=== PATIENT | female | born 1990 | race Hispanic/Latino ===

== ENCOUNTER 2017-08-28 08:58 | Emergency (ER) | payer OTHER, SELFPAY ==
[2017-08-28 09:36] LABS: Bilirubin Negative (Negative); Blood, Urine Trace (Negative); Glucose, Urine (Dipstick) Negative (Negative); Ketone, Urine Negative (Negative); Nitrite Negative (Negative); Protein, Urine (Dipstick) Negative (Neg-Trace)
[2017-08-28 09:39] LABS: Bacteria/HPF 1+ HPF (None Seen); Hyaline Casts/LPF 0-3 HYALINE CAST LPF (0-3 Hyaline); Squamous Epithelial 0-3 HPF (0-3); WBC/HPF 0-3 HPF (0-3)
[2017-08-28 09:53] LABS: #Eosinphils 0.4 thou/uL (0.0-0.7); #Lymphocytes 2.4 thou/uL (1.20-3.40); #Monocytes 0.2 thou/uL (0.11-0.59); #Neutrophils 2.5 thou/uL (1.40-6.50); %Basophils 0.7 % (0.0-1.0); %Eosinophils 6.7 % (0.0-10.0); %Lymphocytes 43.4 % (21.0-51.0); %Monocytes 4.4 % (0.0-10.0); Hematocrit 37.4 % (36.0-47.0); Mean Platelet Volume 6.5 fL (7.4-10.4); Red Blood Cell (RBC) Count 4.22 mill/uL (4.20-5.40); White Blood Cell (WBC) Count 5.5 thou/uL (4.8-10.8)
[2017-08-28 10:14] LABS: ALT (SGPT) 12 U/L (8-55); AST (SGOT) 15 U/L (5-34); Alkaline Phosphatase 61 U/L (40-150); Anion Gap 11 mmol/L (10-20); BUN (Urea Nitrogen) 7 mg/dL (7.0-18.7); Bilirubin, Total 0.4 mg/dL (0.2-1.2); Calc. Creatinine Clearance 0 mL/min (70-130); Calcium 9.4 mg/dL (7.8-10.44); Carbon Dioxide 28 mmol/L (22-29); Chloride 105 mmol/L (98-107); Estimated GFR-MDRD Greater than 90; Globulin 3.1 g/dL (2.4-3.5); Lipase 25 U/L (8-78); Protein, Total 7.4 g/dL (6.0-8.3)
--- NOTE | 2017-08-28 10:57 | CT ---
CT ABDOMEN AND PELVIS WITH CONTRAST: Multiple axial tomograms were obtained through the abdomen and pelvis with IV enhancement. HISTORY: Right abdominal pain. Nausea. FINDINGS: Lung bases clear. Liver, spleen, pancreas unremarkable. The stomach and duodenum unremarkable. Kid neys unremarkable. Small 1 cm cortical cyst right kidney noted. The small bowel loops appear normal. The appendix is identified and appears unremarkable. There are follicular cysts seen in both ovaries. There is a dominate follicular cyst in the right ov katelyn measuring up to 2.5 cm in the axial plane. This may be septated or complex. A small amount of f ree fluid in the pelvis is seen, particularly in the region of the left adnexa. The uterus appears u nremarkable. The urinary bladder is contracted. No mass or adenopathy. IMPRESSION: 1. No evidence of appendicitis. 2. There are bilateral ovarian follicular cysts seen and a larger follicular cyst on the right ovary measures up to 2.5 cm in the axial plane. This may represent a subtalar complex cyst. No significa nt free fluid. POS: [facility]
--- NOTE | 2017-08-28 12:11 | ULT ---
PELVIC ULTRASOUND: HISTORY: Right-sided abdominal pain and nausea, beginning last night. Last menstrual period was this morning and was normal. COMPARISON: None. TECHNIQUE: Transabdominal and endovaginal imaging of the pelvis is performed. The ovaries are interrogated with ta-scale, color-flow, Doppler imaging, and spectral waveform analysis. FINDINGS: The uterus is identified, without myometrial masses. The uterus measures 4.5 x 3.7 x 7.3 cm. The en dometrium has a normal echotexture with a diameter of 0.9 cm. The left ovary has a normal echotexture. Follicles are noted. The left ovary measures 1.5 x 2.7 x 2 cm. Limited evaluation of the right ovary. Follicles are suggested. The right ovary measures 2.1 x 2.6 cm. No free fluid. OVARIAN DOPPLER: Vascular flow to the left and right artery. IMPRESSION: 1. Unremarkable pelvic ultrasound. 2. Limited evaluation of the right ovary. POS: [facility]
[2017-08-28] MEDS ORDERED: Morphine 4 MG/ML VIAL ONE (12:35)
[2017-08-28] MEDS ORDERED: Ondansetron HCl/PF 4 MG/2 ML Vial ONE (12:36)
[2017-08-28] MEDS ORDERED: ISOVUE-370 76%-LOCM 1 ML ONE (13:09)
== END 2017-08-28 13:11 | disposition home or self-care (01) ==
LOC: ERS 08:58
DX: N83.01 Follicular cyst of right ovary (principal); N83.02 Follicular cyst of left ovary
CPT/HCPCS: 74177; 76856; 80053; 81003; 81015; 81025; 83690; 85025; 87086; 87480; 87491; 87510; 87591; 87660; 94760; 96374; 96375; J2270; J2405

== ENCOUNTER 2017-08-31 17:14 | Emergency (ER) | payer OTHER, SELFPAY ==
[2017-08-31 20:11] LABS: #Eosinphils 0.3 thou/uL (0.0-0.7); #Lymphocytes 2.8 thou/uL (1.20-3.40); #Monocytes 0.2 thou/uL (0.11-0.59); #Neutrophils 3.4 thou/uL (1.40-6.50); %Basophils 0.5 % (0.0-1.0); %Eosinophils 4.1 % (0.0-10.0); %Lymphocytes 40.8 % (21.0-51.0); %Monocytes 3.6 % (0.0-10.0); Hematocrit 36.2 % (36.0-47.0); Mean Platelet Volume 6.5 fL (7.4-10.4); Red Blood Cell (RBC) Count 4.14 mill/uL (4.20-5.40); White Blood Cell (WBC) Count 6.7 thou/uL (4.8-10.8)
[2017-08-31 20:34] LABS: ALT (SGPT) 11 U/L (8-55); AST (SGOT) 17 U/L (5-34); Alkaline Phosphatase 58 U/L (40-150); Anion Gap 10 mmol/L (10-20); BUN (Urea Nitrogen) 11 mg/dL (7.0-18.7); Bilirubin, Total 0.2 mg/dL (0.2-1.2); Calc. Creatinine Clearance 0 mL/min (70-130); Calcium 9.2 mg/dL (7.8-10.44); Carbon Dioxide 25 mmol/L (22-29); Chloride 108 mmol/L (98-107); Estimated GFR-MDRD 78; Protein, Total 7.2 g/dL (6.0-8.3)
[2017-08-31] MEDS ORDERED: Ketorolac Tromethamine 30 MG/ML VIAL ONE (20:48)
[2017-08-31] MEDS ORDERED: diphenhydrAMINE 50 MG/ML VIAL ONE (20:48)
[2017-08-31] MEDS ORDERED: Metoclopramide HCl 10 MG/2 ML VIAL ONE (20:48)
[2017-08-31 20:58] LABS: Bilirubin Negative (Negative); Blood, Urine Negative (Negative); Glucose, Urine (Dipstick) Negative (Negative); Ketone, Urine Negative (Negative); Nitrite Negative (Negative); Protein, Urine (Dipstick) Negative (Neg-Trace); Urobilinogen 0.2 mg/dL (0.2-1.0)
--- NOTE | 2017-08-31 21:49 | ULT ---
ULTRASOUND TRANSVAGINAL DOPPLER DUPLEX: Date: 08/31/17 Time: 9 p.m. HISTORY: 27-year-old female with right sided pelvic pain. TECHNIQUE: Endovaginal transducer used to evaluate the intrapelvic contents using ta scale, color flow and spe ctral analysis. FINDINGS: There is a small amount of free fluid in the cul-de-sac. The uterus is 7.5 x 3.5 x 4.5 cm. Endometrial stripe is 0.8 cm (8 mm). Right ovary: 3 x 2 x 2.5 cm. Left ovary: 2 x 1.5 x 3 cm. Blood flow demonstrated in both ovaries by doppler. 2 x 1.5 x 2 cm right ovarian cyst. IMPRESSION: 2 cm right ovarian cyst. POS: [facility]
== END 2017-08-31 22:00 | disposition home or self-care (01) ==
LOC: ERS 17:14
DX: N83.201 Unspecified ovarian cyst, right side (principal); R51 Headache
CPT/HCPCS: 76856; 80053; 81003; 85025; 96365; 96375; J1200; J1885; J2765

== ENCOUNTER 2017-10-01 14:37 | Emergency (ER) | payer MEDICAID ==
[2017-10-01 17:32] LABS: #Basophils 0.1 thou/uL (0.0-0.2); #Eosinphils 0.5 thou/uL (0.0-0.7); #Lymphocytes 2.8 thou/uL (1.20-3.40); #Monocytes 0.4 thou/uL (0.11-0.59); #Neutrophils 3.5 thou/uL (1.40-6.50); %Basophils 0.9 % (0.0-1.0); %Eosinophils 6.3 % (0.0-10.0); %Monocytes 4.8 % (0.0-10.0); Hemoglobin 11.7 g/dL (12.0-16.0); Mean Corpuscular HGB CONC 33.7 g/dL (32.0-36.0); Mean Corpuscular Hemoglobin 30.1 pg (27.0-31.0); Mean Corpuscular Volume 89.3 fl (81.0-99.0); Mean Platelet Volume 6.4 fL (7.4-10.4); Platelet Count 257 thou/uL (130-400); RBC Distribution Width 12.5 % (11.5-14.5); Red Blood Cell (RBC) Count 3.88 mill/uL (4.20-5.40); White Blood Cell (WBC) Count 7.2 thou/uL (4.8-10.8)
[2017-10-01 17:56] LABS: ALT (SGPT) 12 U/L (8-55); AST (SGOT) 17 U/L (5-34); Albumin 4.2 g/dL (3.5-5.0); Alkaline Phosphatase 49 U/L (40-150); Anion Gap 11 mmol/L (10-20); BUN (Urea Nitrogen) 8 mg/dL (7.0-18.7); Bilirubin, Total 0.3 mg/dL (0.2-1.2); Calc. Creatinine Clearance 0 mL/min (70-130); Calcium 9.3 mg/dL (7.8-10.44); Carbon Dioxide 25 mmol/L (22-29); Chloride 105 mmol/L (98-107); Estimated GFR-MDRD Greater than 90; Globulin 2.7 g/dL (2.4-3.5); Glucose 109 mg/dL (70-105); Potassium 3.5 mmol/L (3.5-5.1); Protein, Total 6.9 g/dL (6.0-8.3); Sodium 137 mmol/L (136-145)
[2017-10-01] MEDS ORDERED: Ketorolac Tromethamine 30 MG/ML VIAL ONE (18:03)
[2017-10-01] MEDS ORDERED: Metoclopramide HCl 10 MG/2 ML VIAL ONE (18:03)
[2017-10-01] MEDS ORDERED: diphenhydrAMINE 50 MG/ML VIAL ONE (18:03)
== END 2017-10-01 19:02 | disposition home or self-care (01) ==
LOC: ERS 14:37
DX: R51 Headache (principal)
CPT/HCPCS: 36415; 80053; 85025; 96365; 96375; J1200; J1885; J2765

== ENCOUNTER 2017-10-03 15:30 | Outpatient (CLI) | payer MEDICAID ==
--- NOTE | 2017-10-03 16:48 | ULT ---
PELVIC SONOGRAM TRANSABDOMINAL AND TRANSVAGINAL IMAGING WITH DUPLEX EVALUATION 10/03/17 HISTORY: Pelvic pain. FINDINGS: The urinary bladder is decompressed. The uterus has a heterogeneous echotexture and is 8.2 cm in cb th. Endometrium is 0.9 cm. Physiologic amount of free fluid is present within the cul-de-sac. The rig ht ovary is 3.6 cm in length and the left 2.1 cm. Each contains follicles and demonstrates good color and spectral doppler flow. IMPRESSION: Normal pelvic sonogram. POS: [facility]
== END 2017-10-03 15:31 | disposition home or self-care (01) ==
LOC: ULT 15:30 → EDSTATUS 16:00
PROVIDERS: ATTEND Nurse Practitioner Women's Health
DX: N83.202 Unspecified ovarian cyst, left side (principal)
CPT/HCPCS: 76856

== ENCOUNTER 2017-10-22 17:47 | Emergency (ER) | payer MEDICAID, SELFPAY ==
[~2017-10-22 17:47] MED LIST: ISOVUE-370 76%-LOCM 1 ML ONE; Iopamidol 370 76% 50 ML VIAL FS ONE
[2017-10-22 18:14] LABS: Bilirubin Negative (Negative); Blood, Urine Negative (Negative); Clarity TURBID (Clear); Glucose, Urine (Dipstick) Negative (Negative); Leukocyte Trace (Negative); Nitrite Negative (Negative); Protein, Urine (Dipstick) Negative (Neg-Trace); Specific Gravity, Urine 1.022 (1.002-1.036); Urobilinogen 0.2 mg/dL (0.2-1.0); pH, Urine 7.5 (5.0-9.0)
[2017-10-22 18:14] LABS: #Basophils 0.1 thou/uL (0.0-0.2); #Eosinphils 0.5 thou/uL (0.0-0.7); #Lymphocytes 3.3 thou/uL (1.20-3.40); #Monocytes 0.3 thou/uL (0.11-0.59); #Neutrophils 4.5 thou/uL (1.40-6.50); %Eosinophils 5.7 % (0.0-10.0); %Monocytes 3.2 % (0.0-10.0); %Neutrophils 52.1 % (42.0-75.0); Hemoglobin 12.3 g/dL (12.0-16.0); Mean Corpuscular HGB CONC 33.9 g/dL (32.0-36.0); Mean Corpuscular Volume 88.4 fl (81.0-99.0); Mean Platelet Volume 6.2 fL (7.4-10.4); Platelet Count 400 thou/uL (130-400); RBC Distribution Width 12.1 % (11.5-14.5); Red Blood Cell (RBC) Count 4.09 mill/uL (4.20-5.40); White Blood Cell (WBC) Count 8.7 thou/uL (4.8-10.8)
[2017-10-22 18:16] LABS: Bacteria/HPF Rare-Few HPF (None Seen); Hyaline Casts/LPF 0-3 HYALINE CAST LPF (0-3 Hyaline); Squamous Epithelial 0-3 HPF (0-3); WBC/HPF 0-3 HPF (0-3)
[2017-10-22 18:16] LABS: Pregnancy Test - Urine (BHCG) Negative (Negative); Pregu Control Background? CLEAR/WHITE (CLR/WHITE); Pregu Control Bar Appear? YES (CONTROL BAR); Specific Gravity 1.022 (1.002-1.036)
[2017-10-22 18:20] LABS: RBC/HPF None Seen HPF (0-3)
[2017-10-22 18:38] LABS: ALT (SGPT) 13 U/L (8-55); AST (SGOT) 21 U/L (5-34); Albumin 4.2 g/dL (3.5-5.0); Alkaline Phosphatase 63 U/L (40-150); Anion Gap 10 mmol/L (10-20); BUN (Urea Nitrogen) 12 mg/dL (7.0-18.7); Bilirubin, Total 0.2 mg/dL (0.2-1.2); Calc. Creatinine Clearance 0 mL/min (70-130); Calcium 9.2 mg/dL (7.8-10.44); Carbon Dioxide 25 mmol/L (22-29); Chloride 107 mmol/L (98-107); Estimated GFR-MDRD 89; Globulin 3.2 g/dL (2.4-3.5); Glucose 107 mg/dL (70-105); Lipase 48 U/L (8-78); Potassium 3.5 mmol/L (3.5-5.1); Protein, Total 7.4 g/dL (6.0-8.3); Sodium 138 mmol/L (136-145)
[2017-10-22] MEDS ORDERED: Ketorolac Tromethamine 30 MG/ML VIAL ONE (20:26)
[2017-10-22] MEDS ORDERED: Ondansetron HCl/PF 4 MG/2 ML Vial ONE ×2 (20:26→22:05)
[2017-10-22] MEDS ORDERED: Ondansetron ODT 4 MG TAB ONE (22:05)
--- NOTE | 2017-10-22 22:31 | CT ---
CT ABDOMEN AND PELVIS WITH CONTRAST: Technique: Multiple axial tomograms were obtained through the abdomen and pelvis with IV contrast. Or al contrast was given. History: Right upper quadrant pain x four days. Comparison: 08-28-17 FINDINGS: Lung bases are clear. Liver, spleen, and pancreas unremarkable. Adrenal glands and kidneys unremarkable. No hydronephrosis. There is a small right renal cyst which is stable from prior exam. Small bowel loops unremarkable. There is stool throughout the colon. The appendix is opacified and is normal caliber with no evidence of appendicitis. The left colon is decompressed and not well evaluated. Images through the pelvis show unremarkable appearing uterus and adnexa. IMPRESSION: No evidence of acute process. Specifically, no evidence of appendicitis. POS: [facility]
== END 2017-10-22 23:04 | disposition home or self-care (01) ==
LOC: ERS 17:47
DX: R10.31 Right lower quadrant pain (principal)
CPT/HCPCS: 36415; 74177; 80053; 81003; 81015; 81025; 83690; 85025; 87086; 96374; 96375; 96376; J1885; J2405; Q0162

== ENCOUNTER 2018-01-18 15:43 | Emergency (ER) | payer MEDICAID ==
[2018-01-18 16:06] LABS: #Basophils 0.1 thou/uL (0.0-0.2); #Eosinphils 0.6 thou/uL (0.0-0.7); #Lymphocytes 2.6 thou/uL (1.20-3.40); #Monocytes 0.2 thou/uL (0.11-0.59); %Basophils 0.9 % (0.0-1.0); %Eosinophils 9.5 % (0.0-10.0); %Lymphocytes 39.7 % (21.0-51.0); %Monocytes 3.2 % (0.0-10.0); %Neutrophils 46.7 % (42.0-75.0); Hemoglobin 13.8 g/dL (12.0-16.0); Mean Corpuscular HGB CONC 33.6 g/dL (32.0-36.0); Mean Corpuscular Volume 89.3 fl (81.0-99.0); Mean Platelet Volume 6.1 fL (7.4-10.4); Platelet Count 356 thou/uL (130-400); RBC Distribution Width 12.7 % (11.5-14.5); Red Blood Cell (RBC) Count 4.61 mill/uL (4.20-5.40); White Blood Cell (WBC) Count 6.5 thou/uL (4.8-10.8)
[2018-01-18 16:27] LABS: ALT (SGPT) 13 U/L (8-55); AST (SGOT) 19 U/L (5-34); Albumin 4.7 g/dL (3.5-5.0); Alkaline Phosphatase 65 U/L (40-150); Anion Gap 12 mmol/L (10-20); BUN (Urea Nitrogen) 10 mg/dL (7.0-18.7); Bilirubin, Total 0.2 mg/dL (0.2-1.2); Calc. Creatinine Clearance 0 mL/min (70-130); Calcium 9.4 mg/dL (7.8-10.44); Carbon Dioxide 22 mmol/L (22-29); Chloride 107 mmol/L (98-107); Estimated GFR-MDRD Greater than 90; Globulin 3.1 g/dL (2.4-3.5); Glucose 96 mg/dL (70-105); Potassium 4.2 mmol/L (3.5-5.1); Protein, Total 7.8 g/dL (6.0-8.3); Sodium 137 mmol/L (136-145)
[2018-01-18] MEDS ORDERED: Ketorolac Tromethamine 30 MG/ML VIAL ONE (17:19)
--- NOTE | 2018-01-18 17:47 | ULT ---
PELVIC ULTRASOUND INCLUDING TRANSABDOMINAL AND TRANSVAGINAL AND VASCULAR DUPLEX WITH COLOR AND SPECTR AL DOPPLER IMAGIN01/18/18 HISTORY: 27-year-old female with right sided pelvic pain. COMPARISON: 10/03/17 FINDINGS: The uterus appears normal measuring 6.8 x 3.3 x 5.0 cm with an endometrium measuring 0.3 cm in thickn ess. The right ovary measures 1.6 x 2.1 x 2.4 cm. The left ovary measures 1.7 x 2.0 x 2.8 cm. There i s a very small 02 x 0.7 cm diameter cystic focus in the left side of the fundus of the uterus which i s not in the endometrial cavity. I am not certain as to the etiology of this but I do not feel that i t is clinically significant. I feel that it probably was present on the prior study but just not as w ell seen because of the less quality of that study. IMPRESSION: Unremarkable pelvic ultrasound. 0.2 x 0.7 cm diameter cystic focus in the left uterine fundal region. Etiology of this is uncertain but I feel that this is not related to any acute process and probably was present on the prior 10/03/17 study and stable POS: [facility]
[2018-01-18 17:56] LABS: Bilirubin Negative (Negative); Blood, Urine Negative (Negative); Clarity CLOUDY (Clear); Glucose, Urine (Dipstick) Negative (Negative); Leukocyte Negative (Negative); Nitrite Negative (Negative); Protein, Urine (Dipstick) Negative (Neg-Trace); Urobilinogen 0.2 mg/dL (0.2-1.0)
[2018-01-18 17:57] LABS: Pregnancy Test - Urine (BHCG) Negative (Negative); Pregu Control Background? CLEAR/WHITE (CLR/WHITE); Pregu Control Bar Appear? YES (CONTROL BAR)
[2018-01-18] MEDS ORDERED: Iopamidol 370 76% 50 ML VIAL FS ONE (20:22)
[2018-01-18] MEDS ORDERED: ISOVUE-370 76%-LOCM 1 ML ONE (20:22)
--- NOTE | 2018-01-18 20:56 | CT ---
CT ABDOMEN AND PELVIS WITH IV CONTRAST 01/18/18 Multiple axial tomograms obtained through the abdomen and pelvis with IV enhancement. Oral contrast w as also administered. INDICATIONS: Right lower quadrant abdominal pain. Comparison made to prior CT abdomen and pelvis dated 10/22/17. The lung bases are clear. The liver, spleen and pancreas unremarkable. Adrenal glands and kidneys unremarkable. Small cyst in t he mid right kidney is stable. No hydronephrosis. The urinary bladder is mildly distended. Small bowel loops appear normal. The appendix opacifies and appears normal. the uterus and adnexa jillian ear unremarkable. No free fluid seen. IMPRESSION: No acute abnormality identified. POS: [facility]
== END 2018-01-18 20:45 | disposition home or self-care (01) ==
LOC: ERS 15:43
DX: R10.31 Right lower quadrant pain (principal)
CPT/HCPCS: 36415; 74177; 76856; 80053; 81003; 81025; 85025; 96372; J1885

== ENCOUNTER 2018-06-02 20:37 | Emergency (ER) | payer MEDICAID, SELFPAY ==
[2018-06-02] MEDS ORDERED: hydrOXYzine 25 MG TAB PO SCH (21:15)
--- NOTE | 2018-06-02 21:32 | RAD ---
CHEST TWO VIEWS: HISTORY: Shortness of breath. COMPARISON: None. FINDINGS: The lungs are clear. No pneumothorax or effusion. The cardiac silhouette and mediastinal contour ar e within normal limits. IMPRESSION: No acute intrathoracic abnormality. POS: [facility]
[2018-06-02] MEDS ORDERED: hydrOXYzine 25 MG TAB ONE (21:38)
== END 2018-06-02 22:48 | disposition home or self-care (01) ==
LOC: ERS 20:37
DX: R09.89 Other specified symptoms and signs involving the circulatory and respiratory systems (principal)
CPT/HCPCS: 71046; 87081; 87430

== ENCOUNTER 2018-08-05 18:16 | Observation (INO) | payer SELFPAY ==
[2018-08-05 18:54] LABS: #Basophils 0.1 thou/uL (0.0-0.2); #Eosinphils 0.4 thou/uL (0.0-0.7); #Lymphocytes 2.9 thou/uL (1.20-3.40); #Monocytes 0.3 thou/uL (0.11-0.59); #Neutrophils 2.4 thou/uL (1.40-6.50); %Eosinophils 6.2 % (0.0-10.0); %Lymphocytes 47.5 % (21.0-51.0); %Monocytes 5.5 % (0.0-10.0); %Neutrophils 39.9 % (42.0-75.0); Hemoglobin 12.6 g/dL (12.0-16.0); Mean Corpuscular HGB CONC 33.3 g/dL (32.0-36.0); Mean Corpuscular Hemoglobin 28.9 pg (27.0-31.0); Mean Corpuscular Volume 86.7 fL (78.0-98.0); Mean Platelet Volume 6.5 fL (7.4-10.4); Platelet Count 331 thou/uL (130-400); RBC Distribution Width 12.6 % (11.5-14.5); Red Blood Cell (RBC) Count 4.38 mill/uL (4.20-5.40); White Blood Cell (WBC) Count 6.1 thou/uL (4.8-10.8)
[2018-08-05] MEDS ORDERED: Morphine 2 MG/ML SYRINGE ONE (19:05)
[2018-08-05] MEDS ORDERED: Ondansetron PF 4 MG/2 ML Vial ONE (19:05)
[2018-08-05 19:13] LABS: BHCG - Serum Negative (NEGATIVE); Pregs Control Background? CLEAR/WHITE (CLR/WHITE); Pregs Control Bar Appear? YES (CONTROL BAR)
[2018-08-05 19:21] LABS: ALT (SGPT) 15 U/L (8-55); AST (SGOT) 17 U/L (5-34); Albumin 4.3 g/dL (3.5-5.0); Alkaline Phosphatase 65 U/L (40-150); Anion Gap 11 mmol/L (10-20); BUN (Urea Nitrogen) 8 mg/dL (7.0-18.7); Bilirubin, Total 0.3 mg/dL (0.2-1.2); Calc. Creatinine Clearance 0 mL/min (70-130); Calcium 9.3 mg/dL (7.8-10.44); Carbon Dioxide 24 mmol/L (22-29); Chloride 106 mmol/L (98-107); Estimated GFR-MDRD 90; Glucose 102 mg/dL (70-105); Lipase 35 U/L (8-78); Potassium 3.5 mmol/L (3.5-5.1); Protein, Total 7.3 g/dL (6.0-8.3); Sodium 137 mmol/L (136-145)
[2018-08-05] MEDS ORDERED: Ondansetron ODT 4 MG TAB PO PRN (21:11)
[2018-08-05] MEDS ORDERED: Ondansetron PF 4 MG/2 ML Vial IVP PRN (21:11)
[2018-08-05] MEDS ORDERED: Ketorolac Tromethamine 30 MG/ML VIAL IVP PRN (21:13)
[2018-08-05] MEDS ORDERED: Acetaminophen 1,000 MG in Premix Bag 1 BAG IVPB PRN (21:13)
[2018-08-05] MEDS ORDERED: Levofloxacin 500 mg/D5W 100 ml Premix Bag ONE (21:24)
[2018-08-05] MEDS ORDERED: Scopolamine 1.5 mg/72 hour Patch TD SCH (22:00)
--- NOTE | 2018-08-05 22:31 | ULT ---
GALLBLADDER ULTRASOUND: History: Right upper quadrant pain. FINDINGS: Images of the gallbladder show shadowing gallstones in the neck of the gallbladder. The gallbladder w all is thickened and edematous. Pericholecystic edema. Common duct is normal caliber at 4-5 mm. Techn ologist describes a positive Vásquez sign. Liver unremarkable. Pancreas obscured. Right kidney unremarkable. Tiny cortical cysts measuring appro ximately 0.7 cm noted in the mid right kidney. There is a tiny adjacent echogenic focus which could r epresent calculus, however, no posterior shadowing is identified. IMPRESSION: 1. The gallbladder is abnormal with gallstones in the neck of the gallbladder with thickened gallblad hilario wall with pericholecystic edema, positive Vásquez's sign suggesting cholecystitis. 2. Tiny right renal cysts as described. POS: [facility]
[2018-08-05 22:36] VITALS: BMI 22.9
--- NOTE | 2018-08-05 23:11 | HP ---
HISTORY OF PRESENT ILLNESS: Malinda Bello is a 28-year-old female, mother of 4 C-sections pr ior to ligation and has had epigastric pain, right upper quadrant pain, and back radiation. She pres ents to the emergency room, evaluated. Ultrasound revealed gallstones with bile duct of 3.2 mm. Yamilet er function tests are normal. ALLERGIES: None. TOBACCO: None. ALCOHOL: Rarely. MEDICATIONS: None. PAST SURGICAL HISTORY/PAST MEDICAL HISTORY: Noncontributory except for C-sections and tubal ligation . REVIEW OF SYSTEMS: Ten point noncontributory. PHYSICAL EXAMINATION: VITAL SIGNS: Blood pressure 120/74, respiration rate 16, heart rate 74. HEENT: Unremarkable. Sclerae nonicteric. SKIN: Nonjaundiced. LUNGS: Clear to auscultation. CARDIAC: Regular rate and rhythm without murmur or gallop. ABDOMEN: Soft and tenderness in right quadrant with guarding. EXTREMITIES: Unremarkable. ASSESSMENT AND PLAN: Cholecystitis and cholelithiasis. I have recommended laparoscopic video cholec ystectomy. Risk of infection, bleeding and visceral biliary injury explained. She consents.
[2018-08-06] MEDS: Sodium Chloride 0.9% 1,000 ML IV SCH ×2 (00:06→07:38)
[2018-08-06] MEDS ORDERED: Morphine 4 MG/ML VIAL IV PRN (02:07)
[2018-08-06] MEDS ORDERED: Morphine 2 MG/ML SYRINGE SLOW IVP PRN (02:40)
[2018-08-06] MEDS ORDERED: Fentanyl 100 MCG/2 ML VIAL ONE ×3 (07:15→09:44)
[2018-08-06] MEDS ORDERED: Famotidine/PF 20 mg/2ml Vial ONE (07:18)
[2018-08-06] MEDS ORDERED: Ketorolac Tromethamine 30 MG/ML VIAL ONE (07:32)
[2018-08-06] MEDS ORDERED: Bupivacaine HCl 0.5%/Epinephrine 1:200,000/PF 30 ml Vial ONE (08:55)
[2018-08-06] MEDS ORDERED: Meperidine HCl/PF 25 MG/ML VIAL SLOW IVP PRN (08:59)
[2018-08-06] MEDS ORDERED: Promethazine HCl 25 MG/ML VIAL IM PRN (08:59)
[2018-08-06] MEDS ORDERED: Promethazine HCl 25 MG/ML VIAL SLOW IVP PRN (08:59)
[2018-08-06] MEDS ORDERED: Ondansetron HCl/PF 4 MG/2 ML Vial IVP PRN (08:59)
[2018-08-06] MEDS ORDERED: traMADol HCl 50 MG TAB PO PRN ×2 (09:24)
[2018-08-06] MEDS ORDERED: Acetaminophen 500 MG TAB PO PRN (09:24)
[2018-08-06] MEDS ORDERED: Ibuprofen 600 MG TAB PO PRN (09:24)
--- NOTE | 2018-08-06 10:22 | OP ---
DATE OF OPERATION: 08/06/2018 PREOPERATIVE DIAGNOSES: Acute on chronic cholecystitis, cholelithiasis, gallstone obstructing the ga llbladder outlet. SURGEON: Gene Rhodes M.D. ELECTROLOGIST: Kevin Koroma MS-4. PROCEDURE PERFORMED: Laparoscopic video cholecystectomy. ANESTHESIA: A 0.5% Marcaine with epinephrine 30 mL, general anesthesia. DESCRIPTION OF PROCEDURE: The patient was taken to the operating room where under general anesthesia , abdomen was prepared with ChloraPrep, draped in routine fashion. Local anesthetic was infiltrated into the skin and subcutaneous tissue about each port site. Infraumbilical incision was made. Pneum operitoneum to 15 mmHg obtained with the Veress needle, replacing it with a 5 port and video laparosc ope inserted. Right subxiphoid incision was made and a 11 port placed. Right subcostal incision was made in midclavicular anterior axillary lines and 5 ports placed. Fundus of the gallbladder grasped at cephalad. Gallbladder acutely inflamed, distended with a stone obstructing the gallbladder outle t. Cystic artery and duct dissected free. Critical view obtained. Cystic artery and duct doubly cl ipped proximally, divided, and gallbladder dissected free from the liver bed obtaining good hemostasi s prior to division of final peritoneal attachments. Gallbladder and stones removed and submitted to Pathology. Good hemostasis ensured with cautery. Irrigant and pneumoperitoneum evacuated. All ins truments removed and all skin incisions approximated with interrupted subdermal 4-0 Monocryl and Derm aGlue applied.
[2018-08-06 10:40] VITALS: BP 103/63; TEMP 98
[2018-08-06] MEDS ORDERED: Dexamethasone 20 MG/5 ML VIAL ONE (14:23)
[2018-08-06] MEDS ORDERED: Succinylcholine Chloride 20 MG/ML 10 ml SYRINGE FS ONE (14:23)
[2018-08-06] MEDS ORDERED: PROPOFOL 200 MG/20 ML VIAL ONE (14:23)
[2018-08-06] MEDS ORDERED: Ondansetron PF 4 MG/2 ML Vial ONE (14:23)
[2018-08-06] MEDS ORDERED: Lidocaine 1% PF 5 ML VIAL ONE (14:23)
[2018-08-06] MEDS ORDERED: Glycopyrrolate 0.2 MG/ML 5 ML SYRINGE ONE (14:23)
--- NOTE | 2018-08-06 17:05 | DIS ---
DATE OF ADMISSION: 08/05/2018 DATE OF DISCHARGE: 08/06/2018 DISCHARGE DIAGNOSES: Acute cholecystitis, cholelithiasis, cystic duct obstruction with large stone. PROCEDURES: Laparoscopic video cholecystectomy. CT scan and ultrasound in the ER prior to admission . HISTORY: A 28-year-old 4, para 4 with history of tubal ligation, presents with biliary sympt oms. Normal liver function test. CT scan and ultrasound revealing gallstones, normal bile duct christina edna. Underwent laparoscopic video cholecystectomy after hydrating. Given antibiotics overnight. Hafsa lakhani was discharged home same day. To see me in the office in 1-2 weeks and home with Ultram p.r.n. manpreet n refractory to Tylenol and Motrin [id number]. Diet and activity as tolerated. No lifting res trictions.
[2018-08-06] MEDS ORDERED: Enoxaparin Sodium 40 MG/0.4 ML SYRINGE SC SCH (21:00)
== END 2018-08-06 17:10 | disposition home or self-care (01) ==
LOC: ERS 18:16 → SURG A 22:13
PROVIDERS: ADMIT Specialist; ATTEND Specialist
PROC: 0FT44ZZ Resection of Gallbladder, Percutaneous Endoscopic Approach (ICD-10-PCS; principal; 2018-08-06)
DX: K80.12 Calculus of gallbladder with acute and chronic cholecystitis without obstruction (principal)
CPT/HCPCS: 76705; 80053; 82274; 83690; 84703; 85025; 88304; 96361; 96365; 96375; G0378; J0131; J0670; J1100; J1885; J1956; J2001; J2270; J2405; J2704; J3010; S0028

== ENCOUNTER 2018-08-10 17:09 | Emergency (ER) | payer SELFPAY ==
[2018-08-10 17:37] LABS: #Eosinphils 0.4 thou/uL (0.0-0.7); #Monocytes 0.3 thou/uL (0.11-0.59); #Neutrophils 2.6 thou/uL (1.40-6.50); %Basophils 0.9 % (0.0-1.0); %Eosinophils 7.2 % (0.0-10.0); %Lymphocytes 37.4 % (21.0-51.0); %Monocytes 5.1 % (0.0-10.0); %Neutrophils 49.4 % (42.0-75.0); Hemoglobin 12.6 g/dL (12.0-16.0); Mean Corpuscular HGB CONC 33.5 g/dL (32.0-36.0); Mean Corpuscular Hemoglobin 29.4 pg (27.0-31.0); Mean Corpuscular Volume 87.6 fL (78.0-98.0); Mean Platelet Volume 6.3 fL (7.4-10.4); Platelet Count 363 thou/uL (130-400); RBC Distribution Width 12.5 % (11.5-14.5); White Blood Cell (WBC) Count 5.3 thou/uL (4.8-10.8)
[2018-08-10 17:42] LABS: Bilirubin Negative (Negative); Blood, Urine Moderate (Negative); Clarity TURBID (Clear); Glucose, Urine (Dipstick) Negative (Negative); Leukocyte Small (Negative); Nitrite Negative (Negative); Protein, Urine (Dipstick) Negative (Neg-Trace); Specific Gravity, Urine 1.017 (1.002-1.036)
[2018-08-10 17:44] LABS: Bacteria/HPF None Seen HPF (None Seen); Hyaline Casts/LPF 0-3 HYALINE CAST LPF (0-3 Hyaline); Squamous Epithelial 0-3 HPF (0-3); WBC/HPF 0-3 HPF (0-3); Yeast-AUWi Flag 16.2 (0-25.0)
[2018-08-10 17:45] LABS: Pregnancy Test - Urine (BHCG) Negative (Negative); Pregu Control Background? CLEAR/WHITE (CLR/WHITE); Pregu Control Bar Appear? YES (CONTROL BAR); Specific Gravity 1.017 (1.002-1.036)
[2018-08-10 17:58] LABS: ALT (SGPT) 119 U/L (8-55); AST (SGOT) 43 U/L (5-34); Albumin 4.2 g/dL (3.5-5.0); Alkaline Phosphatase 80 U/L (40-150); Anion Gap 13 mmol/L (10-20); BUN (Urea Nitrogen) 10 mg/dL (7.0-18.7); Bilirubin, Total 0.3 mg/dL (0.2-1.2); Calc. Creatinine Clearance 0 mL/min (70-130); Calcium 9.2 mg/dL (7.8-10.44); Carbon Dioxide 26 mmol/L (22-29); Chloride 104 mmol/L (98-107); Estimated GFR-MDRD Greater than 90; Globulin 2.9 g/dL (2.4-3.5); Glucose 115 mg/dL (70-105); Lipase 37 U/L (8-78); Potassium 3.7 mmol/L (3.5-5.1); Protein, Total 7.1 g/dL (6.0-8.3); Sodium 139 mmol/L (136-145)
== END 2018-08-10 18:43 | disposition home or self-care (01) ==
LOC: ERS 17:09
DX: N30.80 Other cystitis without hematuria (principal)
CPT/HCPCS: 36415; 80053; 81003; 81015; 81025; 83690; 85025; 87086; 99284

== ENCOUNTER 2018-11-01 18:00 | Emergency (ER) | payer SELFPAY | END 2018-11-01 19:09 | disposition home or self-care (01) | LOC: ERS 18:00 | DX: R52 Pain, unspecified (principal) | CPT/HCPCS: 87804; 99281 ==

== ENCOUNTER 2018-11-04 18:58 | Emergency (ER) | payer SELFPAY ==
--- NOTE | 2018-11-04 20:30 | RAD ---
CHEST TWO VIEWS: INDICATIONS: History of fever with never flu evaluation. COMPARISON: 06/02/2018 FINDINGS: The lungs are clear. The cardiomediastinal silhouette is within normal limits. No acute osseous abn ormality is evident. There are surgical clips within the right upper extremity, likely related to an interval cholecystectomy. IMPRESSION: 1. No acute cardiopulmonary abnormality. 2. Interval cholecystectomy. POS: [facility]
[2018-11-04] MEDS ORDERED: Ondansetron ODT 4 MG TAB ONE (20:53)
[2018-11-04] MEDS ORDERED: Acetaminophen 325 MG TAB ONE (21:46)
[2018-11-04] MEDS ORDERED: Ibuprofen 200 MG TAB ONE (21:46)
== END 2018-11-04 21:52 | disposition home or self-care (01) ==
LOC: ERS 18:58
DX: R50.9 Fever, unspecified (principal)
CPT/HCPCS: 71046; 87081; 87430; 87804; Q0162

== ENCOUNTER 2019-01-08 09:46 | Emergency (ER) | payer MEDICAID, SELFPAY ==
--- NOTE | 2019-01-08 10:20 | RAD ---
Right foot 3 views INDICATION: Right foot pain COMPARISON: None FINDINGS: No acute fracture or subluxation is evident. The Lisfranc alignment appears within normal l imits. Soft tissues are normal appearing. IMPRESSION: No acute osseous abnormality.
== END 2019-01-08 10:43 | disposition home or self-care (01) ==
LOC: ERS 09:46
DX: S93.401A Sprain of unspecified ligament of right ankle, initial encounter (principal); S93.601A Unspecified sprain of right foot, initial encounter; W18.30XA Fall on same level, unspecified, initial encounter

== ENCOUNTER 2019-03-10 22:17 | Emergency (ER) | payer SELFPAY ==
[~2019-03-10 22:17] MED LIST changes: -Iopamidol 370 76% 50 ML VIAL FS ONE
[2019-03-10] MEDS ORDERED: Ondansetron PF 4 MG/2 ML Vial ONE (22:34)
[2019-03-10] MEDS ORDERED: Pantoprazole 40 MG VIAL ONE (22:34)
[2019-03-10] MEDS ORDERED: Morphine 4 MG/ML VIAL ONE (22:34)
[2019-03-10 22:49] LABS: #Basophils 0.1 thou/uL (0.0-0.2); #Eosinphils 0.8 thou/uL (0.0-0.7); #Lymphocytes 2.7 thou/uL (1.20-3.40); #Monocytes 0.4 thou/uL (0.11-0.59); #Neutrophils 8.2 thou/uL (1.40-6.50); %Basophils 0.4 % (0.0-1.0); %Eosinophils 6.4 % (0.0-10.0); %Lymphocytes 22.2 % (21.0-51.0); %Monocytes 3.6 % (0.0-10.0); %Neutrophils 67.3 % (42.0-75.0); Hemoglobin 13.5 g/dL (12.0-16.0); Mean Corpuscular HGB CONC 34.2 g/dL (32.0-36.0); Mean Corpuscular Hemoglobin 29.6 pg (27.0-31.0); Mean Corpuscular Volume 86.6 fL (78.0-98.0); Mean Platelet Volume 6.6 fL (7.4-10.4); Platelet Count 325 thou/uL (130-400); RBC Distribution Width 13.1 % (11.5-14.5); Red Blood Cell (RBC) Count 4.56 mill/uL (4.20-5.40); White Blood Cell (WBC) Count 12.1 thou/uL (4.8-10.8)
[2019-03-10 23:11] LABS: ALT (SGPT) 12 U/L (8-55); AST (SGOT) 15 U/L (5-34); Albumin 4.3 g/dL (3.5-5.0); Alkaline Phosphatase 80 U/L (40-150); Anion Gap 14 mmol/L (10-20); BUN (Urea Nitrogen) 12 mg/dL (7.0-18.7); Bilirubin, Total 0.4 mg/dL (0.2-1.2); Calc. Creatinine Clearance 0 mL/min (70-130); Calcium 9.2 mg/dL (7.8-10.44); Carbon Dioxide 19 mmol/L (22-29); Chloride 107 mmol/L (98-107); Estimated GFR-MDRD Greater than 90; Globulin 2.9 g/dL (2.4-3.5); Glucose 112 mg/dL (70-105); Lipase 35 U/L (8-78); Potassium 3.6 mmol/L (3.5-5.1); Protein, Total 7.2 g/dL (6.0-8.3); Sodium 136 mmol/L (136-145)
[2019-03-10 23:15] LABS: BHCG - Serum Negative (NEGATIVE); Pregs Control Bar Appear? YES (CONTROL BAR)
[2019-03-10 23:16] LABS: Pregs Control Background? CLEAR/WHITE (CLR/WHITE)
[2019-03-10 23:16] LABS: Bilirubin Negative (Negative); Blood, Urine Small (Negative); Clarity CLOUDY (Clear); Glucose, Urine (Dipstick) Negative (Negative); Leukocyte Small (Negative); Nitrite Negative (Negative); Protein, Urine (Dipstick) Negative (Neg-Trace); Specific Gravity, Urine 1.028 (1.002-1.036)
[2019-03-10 23:19] LABS: Bacteria/HPF 1+ HPF (None Seen); Hyaline Casts/LPF 0-3 HYALINE CAST LPF (0-3 Hyaline); Pathc Cast-AUWi Flag 0.13 (0-2.49); RBC/HPF 21-50 HPF (0-3)
--- NOTE | 2019-03-10 23:57 | CT ---
CT abdomen and pelvis with IV contrast HISTORY: Right lower quadrant pain. COMPARISON: 01/18/2018. FINDINGS: The lung bases are clear. Small cyst of the right kidney is stable. The liver, spleen, left kidney, adrenal glands, and pancreas have a normal CT appearance. Gallbladder is surgically absent. Appendix not inflamed. Urinary bladder is unremarkable. IMPRESSION: No significant abnormalities are demonstrated.
[2019-03-11] MEDS ORDERED: Mag-Al 1200 mg/1200 mg/30 ML UDCUP ONE (00:34)
[2019-03-11] MEDS ORDERED: Lidocaine Viscous Sol 2% 15 ml UD Cup ONE (00:34)
== END 2019-03-11 00:57 | disposition home or self-care (01) ==
LOC: ERS 22:17
DX: R10.13 Epigastric pain (principal); R10.31 Right lower quadrant pain
CPT/HCPCS: 36415; 74177; 80053; 81003; 81015; 83605; 83690; 84703; 85025; 96361; 96372; 96374; 96375; C9113; J0500; J2270; J2405; Q9966

== ENCOUNTER 2019-05-18 08:55 | Emergency (ER) | payer SELFPAY ==
[2019-05-18 09:52] LABS: Bacteria/HPF 1+ HPF (None Seen); Bilirubin Negative (Negative); Blood, Urine 3+ (Negative); Clarity Turbid (Clear); Glucose, Urine (Dipstick) Normal (Negative); Leukocyte 500 Leu/uL (Negative); Mucous/LPF Rare LPF (<2+); Nitrite Negative (Negative); Protein, Urine (Dipstick) 10 mg/dL (Neg-Trace); Urobilinogen Normal mg/dL (Less than 2)
[2019-05-18 09:53] LABS: Pregnancy Test - Urine (BHCG) Negative (Negative); Pregu Control Background? CLEAR/WHITE (CLR/WHITE); Pregu Control Bar Appear? YES (CONTROL BAR); Specific Gravity 1.024 (1.002-1.036)
[2019-05-18 10:06] LABS: #Eosinphils 0.4 thou/uL (0.0-0.7); #Lymphocytes 1.7 thou/uL (1.20-3.40); #Monocytes 0.2 thou/uL (0.11-0.59); #Neutrophils 2.5 thou/uL (1.40-6.50); %Basophils 0.9 % (0.0-1.0); %Eosinophils 7.8 % (0.0-10.0); %Lymphocytes 34.6 % (21.0-51.0); %Monocytes 3.7 % (0.0-10.0); %Neutrophils 53.1 % (42.0-75.0); Hemoglobin 12.8 g/dL (12.0-16.0); Mean Corpuscular HGB CONC 34.3 g/dL (32.0-36.0); Mean Corpuscular Hemoglobin 29.9 pg (27.0-31.0); Mean Corpuscular Volume 87.2 fL (78.0-98.0); Mean Platelet Volume 6.7 fL (7.4-10.4); Platelet Count 320 thou/uL (130-400); RBC Distribution Width 12.5 % (11.5-14.5); Red Blood Cell (RBC) Count 4.27 mill/uL (4.20-5.40); White Blood Cell (WBC) Count 4.8 thou/uL (4.8-10.8)
[2019-05-18 10:20] LABS: BHCG - Serum Negative (NEGATIVE)
[2019-05-18 10:21] LABS: Pregs Control Background? CLEAR/WHITE (CLR/WHITE); Pregs Control Bar Appear? YES (CONTROL BAR)
[2019-05-18 10:27] LABS: ALT (SGPT) 12 U/L (8-55); AST (SGOT) 16 U/L (5-34); Albumin 4.3 g/dL (3.5-5.0); Alkaline Phosphatase 86 U/L (40-150); Anion Gap 11 mmol/L (10-20); BUN (Urea Nitrogen) 10 mg/dL (7.0-18.7); Bilirubin, Total 0.3 mg/dL (0.2-1.2); Calc. Creatinine Clearance 0 mL/min (70-130); Calcium 9.1 mg/dL (7.8-10.44); Carbon Dioxide 26 mmol/L (22-29); Chloride 103 mmol/L (98-107); Estimated GFR-MDRD Greater than 90; Globulin 2.8 g/dL (2.4-3.5); Glucose 113 mg/dL (70-105); Lipase 36 U/L (8-78); Potassium 3.6 mmol/L (3.5-5.1); Protein, Total 7.1 g/dL (6.0-8.3); Sodium 136 mmol/L (136-145)
[2019-05-18] MEDS ORDERED: HYDROcodone/Acetaminophen 5/325 mg Tablet ONE (10:28)
[2019-05-18] MEDS ORDERED: Ondansetron ODT 4 MG TAB ONE (10:29)
--- NOTE | 2019-05-18 11:06 | ULT ---
Exam: Pelvic ultrasound including Transabdominal, Transvaginal, And Vascular Duplex with color and spectral Doppler imaging: HISTORY: Right lower quadrant pain COMPARISON: 01/18/2018 FINDINGS: The uterus is 7.3 x 3.7 x 5 cm. Endometrial thickness:0.2 cm Right ovary:2.8 x 1.4 x 1.4 cm Left ovary:2.5 x 1.7 x 1.9 cm No abscess or significant abnormal fluid collection. Vascular duplex examination demonstrates no evidence for ovarian torsion IMPRESSION: No significant acute process within the pelvis
[2019-05-18] MEDS ORDERED: Iopamidol 370 76% 100 ML VIAL ONE (13:03)
--- NOTE | 2019-05-18 13:26 | CT ---
EXAM: Abdomen and pelvic CT scan with contrast: HISTORY: Right lower quadrant pain for 2 months history of prior ovarian cyst COMPARISON: 03/10/2019 FINDINGS: The visualized lung bases are clear. Liver: Unremarkable. Gallbladder:Status post cholecystectomy. Pancreas:Unremarkable Spleen:Unremarkable. Adrenal glands:Unremarkable. Kidneys:No renal calculus or acute obstruction.Small bilateral renal hypodensities, statistically small cysts. No evidence for bowel obstruction. No CT evidence for acute appendicitis. The urinary bladder is unremarkable. Trace fluid in the pelvis. Unremarkable uterus and adnexal regions. IMPRESSION: Small bilateral renal hypodensities statistically small cysts. Trace fluid in the pelvis. No signific ant acute process.
== END 2019-05-18 14:33 | disposition home or self-care (01) ==
LOC: ERS 08:55
DX: R10.31 Right lower quadrant pain (principal)
CPT/HCPCS: 36415; 74177; 76856; 80053; 81003; 81015; 81025; 83690; 84703; 85025; 87086; Q0162; Q9967

== ENCOUNTER 2019-05-27 07:37 | Emergency (ER) | payer SELFPAY ==
[2019-05-27 08:01] LABS: #Eosinphils 0.1 thou/uL (0.0-0.7); #Lymphocytes 1.1 thou/uL (1.20-3.40); #Monocytes 0.2 thou/uL (0.11-0.59); #Neutrophils 8.1 thou/uL (1.40-6.50); %Basophils 0.1 % (0.0-1.0); %Eosinophils 1.2 % (0.0-10.0); %Lymphocytes 11.3 % (21.0-51.0); %Monocytes 2.5 % (0.0-10.0); %Neutrophils 84.8 % (42.0-75.0); Mean Corpuscular HGB CONC 34.3 g/dL (32.0-36.0); Mean Corpuscular Hemoglobin 29.2 pg (27.0-31.0); Mean Corpuscular Volume 84.9 fL (78.0-98.0); Mean Platelet Volume 6.7 fL (7.4-10.4); Platelet Count 320 thou/uL (130-400); RBC Distribution Width 12.2 % (11.5-14.5); Red Blood Cell (RBC) Count 4.81 mill/uL (4.20-5.40); White Blood Cell (WBC) Count 9.5 thou/uL (4.8-10.8)
[2019-05-27 08:25] LABS: ALT (SGPT) 16 U/L (8-55); AST (SGOT) 18 U/L (5-34); Albumin 4.6 g/dL (3.5-5.0); Alkaline Phosphatase 93 U/L (40-150); Anion Gap 13 mmol/L (10-20); BUN (Urea Nitrogen) 11 mg/dL (7.0-18.7); Bilirubin, Total 0.5 mg/dL (0.2-1.2); Calc. Creatinine Clearance 0 mL/min (70-130); Calcium 9.5 mg/dL (7.8-10.44); Carbon Dioxide 21 mmol/L (22-29); Chloride 106 mmol/L (98-107); Estimated GFR-MDRD Greater than 90; Glucose 104 mg/dL (70-105); Lipase 34 U/L (8-78); Potassium 3.4 mmol/L (3.5-5.1); Protein, Total 7.6 g/dL (6.0-8.3); Sodium 137 mmol/L (136-145)
[2019-05-27] MEDS ORDERED: Ketorolac Tromethamine 30 MG/ML VIAL ONE (08:25)
[2019-05-27] MEDS ORDERED: Acetaminophen 500 MG TAB ONE (08:25)
[2019-05-27] MEDS ORDERED: Ondansetron PF 4 MG/2 ML Vial ONE (08:34)
[2019-05-27 09:11] LABS: Bacteria/HPF 1+ HPF (None Seen); Bilirubin Negative (Negative); Blood, Urine 1+ (Negative); Clarity Clear (Clear); Glucose, Urine (Dipstick) Normal (Negative); Leukocyte Negative Leu/uL (Negative); Nitrite Negative (Negative); Protein, Urine (Dipstick) 20 mg/dL (Neg-Trace); RBC/HPF 21-50 HPF (0-3); Urobilinogen Normal mg/dL (Less than 2); WBC/HPF 0-3 HPF (0-3)
[2019-05-27] MEDS ORDERED: Morphine 4 MG/ML VIAL ONE (10:05)
--- NOTE | 2019-05-27 10:18 | CT ---
CT ABDOMEN AND PELVIS WITH IV CONTRAST: Date: 05/27/19 Oral contrast was administered. Multiplanar reconstruction. INDICATION: Abdominal pain. Vomiting. Diarrhea. Comparison made to recent CT abdomen and pelvis dated 05/18/19. FINDINGS: Lung bases clear. Liver, spleen, and pancreas are unremarkable. Stomach and duodenum unremarkable. Kidneys and adrenal glands unremarkable. Low density foci in kidneys consistent with small cysts appe ar stable from prior exam. No hydronephrosis. Urinary bladder mildly distended and unremarkable. Small bowel loops are normal caliber. Appendix is identified and unremarkable. Colon unremarkable. No adenopathy apparent. Images through the pelvis show mildly prominent uterus deviated to the right. There are normal appear ing follicles in both ovaries. No significant free fluid. IMPRESSION: No acute abnormality identified. POS: [facility]
[2019-05-27] MEDS ORDERED: ISOVUE-370 76%-LOCM 1 ML ONE (11:08)
[2019-05-27] MEDS ORDERED: Iopamidol 370 76% 50 ML VIAL FS ONE (11:08)
== END 2019-05-27 11:55 | disposition home or self-care (01) ==
LOC: ERS 07:37
DX: R10.13 Epigastric pain (principal)
CPT/HCPCS: 36415; 74177; 80053; 81003; 81015; 83690; 85025; 87086; 96361; 96374; 96375; J1885; J2270; J2405; Q9966; Q9967

== ENCOUNTER 2019-06-30 14:13 | Emergency (ER) | payer SELFPAY | END 2019-06-30 15:36 | disposition left against medical advice (07) | LOC: ERS 14:13 | DX: Z53.21 Procedure and treatment not carried out due to patient leaving prior to being seen by health care provider (principal) ==

== ENCOUNTER 2019-07-01 14:02 | Emergency (ER) | payer SELFPAY ==
[2019-07-01 14:39] LABS: #Eosinphils 0.5 thou/uL (0.0-0.7); #Lymphocytes 2.2 thou/uL (1.20-3.40); #Monocytes 0.2 thou/uL (0.11-0.59); #Neutrophils 4.6 thou/uL (1.40-6.50); %Basophils 0.4 % (0.0-1.0); %Eosinophils 7.2 % (0.0-10.0); %Lymphocytes 29.2 % (21.0-51.0); %Monocytes 2.9 % (0.0-10.0); %Neutrophils 60.4 % (42.0-75.0); Hemoglobin 12.6 g/dL (12.0-16.0); Mean Corpuscular HGB CONC 35.1 g/dL (32.0-36.0); Mean Corpuscular Hemoglobin 29.7 pg (27.0-31.0); Mean Corpuscular Volume 84.6 fL (78.0-98.0); Mean Platelet Volume 6.2 fL (7.4-10.4); Platelet Count 340 thou/uL (130-400); RBC Distribution Width 12.3 % (11.5-14.5); Red Blood Cell (RBC) Count 4.26 mill/uL (4.20-5.40); White Blood Cell (WBC) Count 7.6 thou/uL (4.8-10.8)
[2019-07-01 15:06] LABS: ALT (SGPT) 44 U/L (8-55); AST (SGOT) 24 U/L (5-34); Albumin 4.1 g/dL (3.5-5.0); Alkaline Phosphatase 81 U/L (40-110); Anion Gap 13 mmol/L (10-20); BUN (Urea Nitrogen) 10 mg/dL (7.0-18.7); Bilirubin, Total 0.3 mg/dL (0.2-1.2); Calc. Creatinine Clearance 0 mL/min (70-130); Calcium 9.5 mg/dL (7.8-10.44); Carbon Dioxide 23 mmol/L (22-29); Chloride 104 mmol/L (98-107); Estimated GFR-MDRD 89; Glucose 144 mg/dL (70-105); Potassium 3.4 mmol/L (3.5-5.1); Protein, Total 7.1 g/dL (6.0-8.3); Sodium 137 mmol/L (136-145)
== END 2019-07-01 14:40 | disposition left against medical advice (07) ==
LOC: ERS 14:02
DX: Z53.21 Procedure and treatment not carried out due to patient leaving prior to being seen by health care provider (principal)
CPT/HCPCS: 36415; 80053; 85025

== ENCOUNTER 2019-10-27 19:11 | Emergency (ER) | payer SELFPAY ==
[~2019-10-27 19:11] MED LIST changes: -ISOVUE-370 76%-LOCM 1 ML ONE; +Iopamidol-370 76% 500 ML 1 ML ONE
[2019-10-27 19:40] LABS: #Basophils 0.1 thou/uL (0.0-0.2); #Eosinphils 0.8 thou/uL (0.0-0.7); #Lymphocytes 3.6 thou/uL (1.20-3.40); #Monocytes 0.4 thou/uL (0.11-0.59); #Neutrophils 4.2 thou/uL (1.40-6.50); %Eosinophils 9.2 % (0.0-10.0); %Lymphocytes 39.4 % (21.0-51.0); %Monocytes 4.6 % (0.0-10.0); %Neutrophils 45.8 % (42.0-75.0); Hemoglobin 12.4 g/dL (12.0-16.0); Mean Corpuscular HGB CONC 33.8 g/dL (32.0-36.0); Mean Corpuscular Hemoglobin 29.2 pg (27.0-31.0); Mean Corpuscular Volume 86.4 fL (78.0-98.0); Mean Platelet Volume 6.6 fL (7.4-10.4); Platelet Count 307 thou/uL (130-400); RBC Distribution Width 12.8 % (11.5-14.5); Red Blood Cell (RBC) Count 4.25 mill/uL (4.20-5.40); White Blood Cell (WBC) Count 9.1 thou/uL (4.8-10.8)
[2019-10-27 20:00] LABS: ALT (SGPT) 12 U/L (8-55); AST (SGOT) 15 U/L (5-34); Albumin 4.2 g/dL (3.5-5.0); Alkaline Phosphatase 88 U/L (40-110); Anion Gap 10 mmol/L (10-20); BUN (Urea Nitrogen) 9 mg/dL (7.0-18.7); Bilirubin, Total 0.2 mg/dL (0.2-1.2); Calc. Creatinine Clearance 0 mL/min (70-130); Calcium 9.4 mg/dL (7.8-10.44); Carbon Dioxide 28 mmol/L (22-29); Chloride 104 mmol/L (98-107); Estimated GFR-MDRD Greater than 90; Globulin 2.8 g/dL (2.4-3.5); Glucose 130 mg/dL (70-105); Potassium 3.4 mmol/L (3.5-5.1); Sodium 139 mmol/L (136-145)
[2019-10-27 20:09] LABS: BHCG - Serum Negative (NEGATIVE); Pregs Control Background? CLEAR/WHITE (CLR/WHITE); Pregs Control Bar Appear? YES (CONTROL BAR)
--- NOTE | 2019-10-27 20:19 | RAD ---
TWO VIEWS CHEST: History: Chest pressure for one month. The pressure is worse today. Tingling in left arm. Comparison: 11-04-18 FINDINGS: The cardiac silhouette and pulmonary vasculature are within normal limits. The lungs are clear. Surgi jennifer clips overlie the right upper quadrant. No other interval change. IMPRESSION: No acute cardiopulmonary process. POS: [facility]
[2019-10-27 20:22] LABS: Thyroid Stimulating Hormone 1.1199 uIU/mL (0.35-4.94)
--- NOTE | 2019-10-27 20:46 | CT ---
CTA Angio Chest W WO Con 10/27/2019 8:07 PM Indication: Intermittent chest pain Technique: Multiple CTA images were obtained of the thorax with IV contrast. 3-D rendering: MIP jia nstructed images were created and reviewed. Comparison: No relevant prior studies available. Findings: Pulmonary arteries: No central or segmental pulmonary embolus is evident. Heart and Aorta: Normal appearing. Mediastinum:Normal appearing. No enlarged lymph nodes. Lungs:The lungs are clear. Pleural space: Clear. Upper Abdomen: The gallbladder is surgically absent. The visualized adrenal glands appear within nor mal limits. Osseous Structures: No acute osseous abnormality. Soft tissues:No abnormality. Other findings:None. Impression: No central or segmental pulmonary embolus.
== END 2019-10-27 22:25 | disposition home or self-care (01) ==
LOC: ERS 19:11
DX: R07.9 Chest pain, unspecified (principal); R11.0 Nausea
CPT/HCPCS: 36415; 71046; 71275; 80053; 84443; 84484; 84703; 85025; 93005; Q9967

== ENCOUNTER 2020-03-18 17:48 | Emergency (ER) | payer MEDICAID, OTHER | END 2020-03-18 20:00 | LOC: ERS 17:48 | DX: Z53.21 Procedure and treatment not carried out due to patient leaving prior to being seen by health care provider (principal) | CPT/HCPCS: 87635; U0003 ==

== ENCOUNTER 2020-11-03 09:20 | Emergency (ER) | payer MEDICAID, SELFPAY ==
[2020-11-03 10:06] LABS: #Lymphocytes 1.2 thou/uL (1.20-3.40); #Monocytes 0.3 thou/uL (0.11-0.59); #Neutrophils 1.7 thou/uL (1.40-6.50); %Basophils 0.7 % (0.0-1.0); %Eosinophils 0.2 % (0.0-10.0); %Lymphocytes 37.2 % (21.0-51.0); %Neutrophils 53.9 % (42.0-75.0); Hemoglobin 9.8 g/dL (12.0-16.0); Mean Corpuscular Hemoglobin 23.9 pg (27.0-31.0); Mean Corpuscular Volume 72.6 fL (78.0-98.0); Mean Platelet Volume 6.8 fL (7.4-10.4); Platelet Count 241 thou/uL (130-400); RBC Distribution Width 14.4 % (11.5-14.5); Red Blood Cell (RBC) Count 4.09 mill/uL (4.20-5.40); White Blood Cell (WBC) Count 3.2 thou/uL (4.8-10.8)
[2020-11-03] MEDS ORDERED: Ondansetron PF 4 MG/2 ML Vial ONE (10:18)
[2020-11-03 10:26] LABS: ALT (SGPT) 177 U/L (8-55); AST (SGOT) 133 U/L (5-34); Albumin 4.2 g/dL (3.5-5.0); Alkaline Phosphatase 112 U/L (40-110); Anion Gap 15 mmol/L (10-20); BUN (Urea Nitrogen) 8 mg/dL (7.0-18.7); Bilirubin, Total 0.2 mg/dL (0.2-1.2); Calc. Creatinine Clearance 0 mL/min (70-130); Calcium 8.7 mg/dL (7.8-10.44); Carbon Dioxide 23 mmol/L (22-29); Chloride 105 mmol/L (98-107); Globulin 3.2 g/dL (2.4-3.5); Glucose 115 mg/dL (70-105); Potassium 3.1 mmol/L (3.5-5.1); Protein, Total 7.4 g/dL (6.0-8.3); Sodium 140 mmol/L (136-145)
[2020-11-03 10:36] LABS: Band 13 % (5-11); Lymphocytes 37 % (21-51); MDiff Complete? YES; Microcytosis SLIGHT = 6-15 cells (100X) (0-5/hpf); Monocytes 4 % (0-10); Neutrophil 44 % (42-75); Platelet Morphology Comment Appears Adequate; Polychromasia SLIGHT = 2-3 cells (100X) (0-2/hpf); Reactive Lymphocytes 1 % (0-10)
[2020-11-03] MEDS ORDERED: Potassium Chloride 20 MEQ TAB ONE (10:57)
--- NOTE | 2020-11-03 10:59 | RAD ---
CHEST 1 VIEW: Date: 11/03/2020 HISTORY: Soreness. Cough. COMPARISON: Chest radiograph 10/27/2019. FINDINGS: There are low grade patchy peripheral and perihilar opacities. No pneumothorax. No pneumomediastinum. No acute osseous abnormality. Cardiac silhouette and mediastinal contours are within normal limits. IMPRESSION: Low grade COVID pneumonia. POS: [facility]
[2020-11-03] MEDS ORDERED: Aspirin Chewable 81 MG TAB ONE (12:10)
[2020-11-03] MEDS ORDERED: Dexamethasone 4 mg/ml Vial ONE ×2 (12:10→12:19)
[2020-11-03 12:14] LABS: BHCG - Serum Negative (NEGATIVE); Pregs Control Background? CLEAR/WHITE (CLR/WHITE); Pregs Control Bar Appear? YES (CONTROL BAR)
[2020-11-03] MEDS ORDERED: Iopamidol-370 76% 500 ML 1 ML ONE (12:29)
--- NOTE | 2020-11-03 14:14 | CT ---
CT ANGIOGRAM OF THE CHEST: HISTORY: Pain. COVID patient. COMPARISON: 10/27/2019. TECHNIQUE: CT angiogram of the chest is performed in the axial plane. Three-dimensional reformatted images are submitted for interpretation. FINDINGS: Mediastinum: No mass, lymphadenopathy, or hematoma. Normal heart size. No significant pericardial fluid. Small hiatal hernia is identified. There is no acute abnormality in the subdiaphragmatic structures. Gallbladder is surgically absent. Trachea and central bronchi are patent. No pleural effusion or pneumothorax. There are peripheral ground-glass opacities, consistent with patient's COVID positive status. There is multilobar COVID pneumonia. No lytic or blastic lesions within the osseous structures. Visualized aorta has a normal caliber. No periaortic fat stranding. Adequate contrast opacification of the pulmonary arterial system to the level of the segmental arteri es. No filling defect to suggest thromboembolism. IMPRESSION: 1. No pulmonary artery embolism to the level of the segmental arteries. 2. Multilobar COVID pneumonia. POS: [facility]
== END 2020-11-03 13:38 | disposition home or self-care (01) ==
LOC: ERS 09:20
DX: U07.1 COVID-19 (principal); J12.82 Pneumonia due to coronavirus disease 2019; R11.2 Nausea with vomiting, unspecified
CPT/HCPCS: 71045; 71275; 80053; 84703; 85025; 85379; 93005; 96374; 96375; J1100; J2405; Q9967

== ENCOUNTER 2021-07-26 09:48 | Emergency (ER) | payer SELFPAY | END 2021-07-26 10:47 | disposition home or self-care (01) | LOC: ERS 09:48 | DX: S93.601A Unspecified sprain of right foot, initial encounter (principal); X50.1XXA Overexertion from prolonged static or awkward postures, initial encounter ==

== ENCOUNTER 2022-07-01 08:55 | Emergency (ER) | payer OTHER, SELFPAY | END 2022-07-01 10:27 | disposition home or self-care (01) | LOC: ERS 08:55 | DX: S60.042A Contusion of left ring finger without damage to nail, initial encounter (principal); W22.8XXA Striking against or struck by other objects, initial encounter ==

== ENCOUNTER 2022-07-31 13:05 | Emergency (ER) | payer SELFPAY ==
[2022-07-31] MEDS ORDERED: Aspirin Chewable 81 MG TAB ONE ×2 (14:38→14:39)
[2022-07-31 14:42] LABS: #Basophils 0.1 thou/uL (0.0-0.2); #Eosinphils 0.8 thou/uL (0.0-0.7); #Lymphocytes 2.1 thou/uL (1.20-3.40); #Monocytes 0.3 thou/uL (0.11-0.59); #Neutrophils 4.1 thou/uL (1.40-6.50); %Basophils 0.8 % (0.0-1.0); %Eosinophils 11.1 % (0.0-10.0); %Lymphocytes 28.4 % (21.0-51.0); %Monocytes 4.2 % (0.0-10.0); %Neutrophils 55.5 % (42.0-75.0); Hemoglobin 12.7 g/dL (12.0-16.0); Mean Corpuscular HGB CONC 33.6 g/dL (32.0-36.0); Mean Corpuscular Hemoglobin 29.8 pg (27.0-31.0); Mean Corpuscular Volume 88.8 fl (78.0-98.0); Mean Platelet Volume 6.2 fL (7.4-10.4); Platelet Count 409 10x3/uL (130-400); RBC Distribution Width 13.9 % (11.5-14.5); Red Blood Cell (RBC) Count 4.24 mill/uL (4.20-5.40); White Blood Cell (WBC) Count 7.4 10x3/uL (4.8-10.8)
[2022-07-31 15:01] LABS: ALT (SGPT) 12 U/L (8-55); AST (SGOT) 15 U/L (5-34); Albumin 4.1 g/dL (3.5-5.0); Alkaline Phosphatase 97 U/L (40-110); Anion Gap 11 mmol/L (10-20); BUN (Urea Nitrogen) 10 mg/dL (7.0-18.7); Bilirubin, Total 0.5 mg/dL (0.2-1.2); CK (CPK) 66 U/L (29-168); Calc. Creatinine Clearance 0 mL/min (70-130); Calcium 8.9 mg/dL (7.8-10.44); Carbon Dioxide 25 mmol/L (22-29); Chloride 108 mmol/L (98-107); Estimated GFR 115; Globulin 2.5 g/dL (2.4-3.5); Glucose 112 mg/dL (70-105); Lipase 42 U/L (8-78); Potassium 3.7 mmol/L (3.5-5.1); Protein, Total 6.6 g/dL (6.0-8.3); Sodium 140 mmol/L (136-145)
[2022-07-31 15:45] LABS: SARS-CoV-2 NAA Rapid Test Not Detected (NotDetected)
== END 2022-07-31 16:17 | disposition home or self-care (01) ==
LOC: ERS 13:05
DX: J20.9 Acute bronchitis, unspecified (principal); Z20.822 Contact with and (suspected) exposure to COVID-19
CPT/HCPCS: 36415; 71046; 80053; 82550; 83605; 83690; 84484; 85025; 85379; 93005; 94640; 94760; J7620

== ENCOUNTER 2023-01-18 08:19 | Emergency (ER) | payer OTHER, SELFPAY | END 2023-01-18 09:22 | disposition home or self-care (01) | LOC: ERS 08:19 | DX: S93.601A Unspecified sprain of right foot, initial encounter (principal); W01.0XXA Fall on same level from slipping, tripping and stumbling without subsequent striking against object, initial encounter ==

== ENCOUNTER 2024-01-22 10:33 | Emergency (ER) | payer OTHER, SELFPAY ==
[2024-01-22] MEDS ORDERED: Proparacaine 0.5% Opth 15 ML BOT ONE (11:49)
== END 2024-01-22 12:57 | disposition home or self-care (01) ==
LOC: ERS 10:33
DX: H11.31 Conjunctival hemorrhage, right eye (principal); I10 Essential (primary) hypertension
CPT/HCPCS: 99284

== ENCOUNTER 2024-07-17 09:15 | Emergency (ER) | payer SELFPAY ==
[2024-07-17 09:59] LABS: Blood, Urine 1+ (Negative); CAUTI Indications for Culture Dysuria,urgency,freq; Glucose, Urine (Dipstick) Normal (Negative); Ketone, Urine Negative (Negative); Leukocyte Negative Leu/uL (Negative); Protein, Urine (Dipstick) Negative (Neg-Trace); Specific Gravity, Urine 1.012 (1.002-1.036); pH, Urine 5.5 (5.0-9.0)
[2024-07-17 10:04] LABS: Bacteria/HPF 1+ HPF (None Seen)
[2024-07-17 10:05] LABS: Clarity Clear (Clear)
[2024-07-17 10:06] LABS: Bilirubin Unable to Interpret (Negative); Nitrite Unable to Interpret (Negative); Urobilinogen UNABLE TO INTERPRET mg/dL (Less than 2)
[2024-07-17 10:07] LABS: Pregnancy Test - Urine (BHCG) Negative (Negative); Pregu Control Background? CLEAR/WHITE (CLR/WHITE); Pregu Control Bar Appear? YES (CONTROL BAR); Specific Gravity 1.012 (1.002-1.036)
[2024-07-17 10:08] LABS: Urine Culture Reflex No No
== END 2024-07-17 10:59 | disposition home or self-care (01) ==
LOC: ERS 09:15
DX: N39.0 Urinary tract infection, site not specified (principal)
CPT/HCPCS: 81001; 81025; 99283